=== PATIENT | male | born 1940 | race Hispanic/Latino ===

== ENCOUNTER → 2018-10-20 | Outpatient (CLI) | payer OTHER | END | disposition home or self-care (01) | LOC: SHCH 12:34 | PROVIDERS: ATTEND Internal Medicine Cardiovascular Disease | DX: I51.7 Cardiomegaly (principal); I35.1 Nonrheumatic aortic (valve) insufficiency; Z95.2 Presence of prosthetic heart valve | CPT/HCPCS: 93306 ==

== ENCOUNTER → 2018-10-29 | Outpatient (CLI) | payer OTHER | END | disposition home or self-care (01) | LOC: SHCH 10:00 | PROVIDERS: ATTEND Internal Medicine Cardiovascular Disease | DX: I87.2 Venous insufficiency (chronic) (peripheral) (principal); R09.89 Other specified symptoms and signs involving the circulatory and respiratory systems | CPT/HCPCS: 93880; 93970 ==

== ENCOUNTER → 2018-11-12 | Outpatient (CLI) | payer OTHER ==
[~2018-11-12] MED LIST: ASPI-555 PO; BENZ-51 PO; FENO54TA6 PO; FINA5TAB41 PO; LOSA100T20 PO; METF500S7 PO; METO25TA6 PO; PRAV40TA3 PO; TAMS0.4C32 PO; WARF4TAB72 PO
== END | disposition home or self-care (01) ==
LOC: OIH 15:47
PROVIDERS: ATTEND Family Medicine
DX: I11.0 Hypertensive heart disease with heart failure (principal); I50.9 Heart failure, unspecified
CPT/HCPCS: 71046

== ENCOUNTER 2018-11-24 20:59 | Emergency (ER) | payer OTHER ==
[2018-11-24 22:09] LABS: BASOPHILS % (AUTO) 0.9 % (0.0-5.0); EOSINOPHILS % (AUTO) 4.8 % (0.0-8.0); HEMATOCRIT 36.3 % (42-54); LYMPHOCYTES % (AUTO) 23.4 % (21.0-51.0); MEAN CORPUSCULAR HEMOGLOBIN 30.5 pg (27.0-33.0); MEAN CORPUSCULAR VOLUME 92.6 fL (79-99); MONOCYTES % (AUTO) 8.8 % (3.0-13.0); NEUTROPHILS % (AUTO) 62.1 % (40.0-77.0); PLATELET COUNT (AUTO) 147 K/uL (130-400); RED BLOOD CELL COUNT(AUTO) 3.93 MIL/uL (4.50-6.20); RED CELL DISTRIBUTION WIDTH 14.6 % (11.0-15.5); WHITE BLOOD COUNT (AUTO) 7.9 K/uL (4.8-10.8)
[2018-11-24 22:21] LABS: CREATININE 0.9 mg/dL (0.5-1.5); POTASSIUM 4.2 mmol/L (3.5-5.1)
[2018-11-24 22:22] LABS: INR 2.97 (0.85-1.15); PARTIAL THROMBOPLASTIN TIME 50.3 SEC (26.3-35.5); PROTHROMBIN TIME 30.5 SEC (9.6-11.6)
[2018-11-24 22:42] LABS: ALBUMIN 3.6 g/dL (3.5-5.0); BILIRUBIN,TOTAL 0.8 mg/dL (0.2-1.0); CRP QUANTITATIVE 12.5 mg/L (0.00-9.0); TOTAL PROTEIN, SERUM 6.8 g/dL (6.0-8.3)
[2018-11-24 23:07] LABS: BILIRUBIN,URINE Negative (NEGATIVE); COLOR,URINE Yellow (YELLOW); GLUCOSE, URINE (UA) Negative (NEGATIVE); KETONES,URINE Negative (NEGATIVE); LEUKOCYTE ESTERASE ,URINE Large (NEGATIVE); NITRATE,URINE Positive (NEGATIVE); OCCULT BLOOD,URINE Moderate (NEGATIVE); PROTEIN,URINE Negative (NEGATIVE)
[2018-11-24 23:08] LABS: APPEARANCE,URINE SLIGHTLY CLOUDY (CLEAR)
[2018-11-24] MEDS ORDERED: SODIUM CHLORIDE 0.9% 100 ML IV ONE (23:25)
[2018-11-24] MEDS ORDERED: SODIUM CHLORIDE 0.9% 50 ML IV ONE (23:25)
[2018-11-24] MEDS ORDERED: CEFTRIAXONE SODIUM 1 GM ONE (23:25)
[2018-11-24 23:26] LABS: ERYTHROCYTE SEDIMENTATION RATE 22 MM/HR (0-20)
[2018-11-24 23:32] LABS: BACTERIA,URINE Many /HPF (None Seen); SQUAMOUS EPITHELIAL CELL,UR 0-2 /HPF (0-2); WBC,URINE 26-50 /HPF (0-1)
== END 2018-11-25 00:20 | disposition home or self-care (01) ==
LOC: EDH 20:59
DX: T82.897A Other specified complication of cardiac prosthetic devices, implants and grafts, initial encounter (principal); N39.0 Urinary tract infection, site not specified; I10 Essential (primary) hypertension; I38 Endocarditis, valve unspecified; E11.9 Type 2 diabetes mellitus without complications; E78.5 Hyperlipidemia, unspecified; Z87.891 Personal history of nicotine dependence
CPT/HCPCS: 36415; 71045; 80053; 81001; 82550; 84484; 85025; 85610; 85651; 85730; 86140; 87077; 87088; 87186; 93005; 96374; 99284; J0696

== ENCOUNTER 2019-04-17 18:12 | Emergency (ER) | payer OTHER ==
[~2019-04-17 18:12] MED LIST changes: -BENZ-51 PO; -LOSA100T20 PO; +LOSA100T58 PO; +METF-805 PO; -METF500S7 PO; -WARF4TAB72 PO
[2019-04-17] MEDS ORDERED: LIDOCAINE HCL 1% 20 ML VIAL ONE (19:37)
[2019-04-17] MEDS ORDERED: TETANUS/DIPHTHERIA TOXOID [ADULT] 0.5 ML VIAL IM ONE (19:59)
== END 2019-04-17 20:09 | disposition home or self-care (01) ==
LOC: EDH 18:12
DX: S61.210A Laceration without foreign body of right index finger without damage to nail, initial encounter (principal); E11.9 Type 2 diabetes mellitus without complications; E78.5 Hyperlipidemia, unspecified; Z79.01 Long term (current) use of anticoagulants; Z95.0 Presence of cardiac pacemaker; Z72.0 Tobacco use; W26.8XXA Contact with other sharp object(s), not elsewhere classified, initial encounter; Y93.89 Activity, other specified; Y92.89 Other specified places as the place of occurrence of the external cause; Y99.8 Other external cause status
CPT/HCPCS: 12041; 73130; 90471; 90714

== ENCOUNTER → 2020-03-03 | Outpatient (CLI) | payer OTHER | END | disposition home or self-care (01) | LOC: RAH 09:14 | PROVIDERS: ATTEND Family Medicine | DX: N28.1 Cyst of kidney, acquired (principal) | CPT/HCPCS: 76770 ==

== ENCOUNTER → 2020-05-12 | Outpatient (CLI) | payer OTHER ==
[~2020-05-12] MED LIST changes: -ASPI-555 PO; +ASPI-556 PO
== END | disposition home or self-care (01) ==
LOC: SHCH 15:14
PROVIDERS: ATTEND Family Medicine
DX: Z95.2 Presence of prosthetic heart valve (principal)
CPT/HCPCS: 93306

== ENCOUNTER 2024-10-27 12:46 | Emergency (ER) | payer OTHER ==
[~2024-10-27] VITALS: Ht 165.1 cm; Wt 73.5 kg
[~2024-10-27 12:46] MED LIST changes: -LOSA100T58 PO; +LOSA100T59 PO; +METF-1150 PO; +METF-444 PO; -METF-805 PO; +PRAV80TA21 PO; +QUET50TA24 PO; +TAMS-1 PO; +WARF4TAB72 PO
--- NOTE | 2024-10-27 13:34 | ERN ---
ED Note History of Present Illness Stated Complaint: BLOOD IN URINE Chief Complaint: Blood in Urine: Time Seen by MD: 13:19 Dictation: PATIENT IS AN 84-YEAR-OLD MALE HERE WITH PAINLESS HEMATURIA ONSET AT 03:00 THIS MORNING. HE IS ON BLOOD THINNERS AND DAUGHTER STATES HE HAS A HISTORY OF BLADDER CANCER, SEEING DR. ALEMAN, UROLOGY OUT [facility]. Allergies: Coded Allergies: No Allergy Information Available (Verified Allergy, Unknown, 03/18/23) No Known Drug Allergies (Unverified Allergy, Unknown, 03/18/23) Home Meds Reported Medications Metformin HCl (Metformin HCl) 500 Mg Tablet, 500 MG PO DAILY, TAB 01/26/21 Losartan Potassium (Losartan Potassium) 100 Mg Tablet, 100 MG PO DAILY, TAB 01/26/21 Finasteride (Finasteride) 5 Mg Tablet, 5 MG PO DAILY, TAB 01/26/21 Metoprolol Tartrate (Metoprolol Tartrate) 25 Mg Tablet, 25 MG PO BID, TAB 01/26/21 Tamsulosin HCl (Flomax) 0.4 Mg Cap.er.24h, 0.4 MG PO AM, CAPSULE. 01/26/21 Pravastatin Sodium (Pravastatin Sodium) 80 Mg Tablet, 80 MG PO HS, TAB 01/26/21 Warfarin Sodium (Warfarin Sodium) 4 Mg Tablet, 4 MG PO DAILY, TAB 01/26/21 Quetiapine Fumarate (Quetiapine Fumarate) 50 Mg Tablet, 50 MG PO HS 01/24/21 Metformin HCl (Metformin HCl ER) 500 Mg [id number], 500 MG PO DAILY 02/25/19 Metoprolol Tartrate (Metoprolol Tartrate) 25 Mg Tablet, 25 MG PO BID, TAB 11/12/18 Aspirin (Aspir 81) 81 Mg Tablet.dr, 81 MG PO DAILY, TAB 11/12/18 Fenofibrate (Fenofibrate) 54 Mg Tablet, 54 MG PO DAILYBKFST, TAB 11/12/18 Losartan Potassium (Losartan Potassium) 100 Mg Tablet, 100 MG PO DAILYBKFST, TAB 11/12/18 Tamsulosin HCl (Tamsulosin HCl) 0.4 Mg Cap.er.24h, 0.4 MG PO DAILYBKFST, CAPSULE. 11/12/18 Finasteride (Finasteride) 5 Mg Tablet, 5 MG PO DAILY, TAB 11/12/18 Pravastatin Sodium (Pravastatin Sodium) 40 Mg Tablet, 40 MG PO DAILYDINNER, TAB 11/12/18 Past Medical History PSYCH History: no pertinent psych hx RN Note Reviewed/Agreed w/PFSH: Yes Review of System Dictation CONSTITUTIONAL: NEGATIVE EXCEPT FOR HPI HEAD/FACE: NEGATIVE EXCEPT FOR HPI EENT: NEGATIVE EXCEPT FOR HPI RESPIRATORY: NEGATIVE EXCEPT FOR HPI GASTROINTESTINAL/ABDOMINAL: NEGATIVE EXCEPT FOR HPI GENITOURINARY: NEGATIVE EXCEPT FOR HPI PAINLESS HEMATURIA MUSCULOSKELETAL: NEGATIVE EXCEPT FOR HPI INTEGUMENTARY: NEGATIVE EXCEPT FOR HPI NEUROLOGICAL/PSYCH: NEGATIVE EXCEPT FOR HPI HEMATOLOGIC/LYMPHATIC: NEGATIVE EXCEPT FOR HPI ALL SYSTEMS NEGATIVE, EXCEPT NOTED ABOVE. 13 POINT REVIEW OF SYSTEMS ASSESSED AND ALL NEGATIVE EXCEPT FOR ABOVE. Initial Vital Sign VS Vital Signs Date Time Temp Pulse Resp B/P (MAP) Pulse Ox O2 Delivery O2 Flow Rate FiO2 10/27/24 13:28 98.4 100 18 147/65 98 10/27/24 14:09 Room Air* 0 21 Physical Exam Dictation VITAL SIGNS REVIEWED GENERAL APPEARANCE: ALERT, ORIENTED X 3, NO ACUTE DISTRESS, WELL DEVELOPED, NOURISHED. HEAD AND FACE: NON-TRAUMATIC. EYES: PERRL, PINK CONJUNCTIVAS, EYELID NO TRAUMA, ANTERIOR CHAMBER WITH ARCUS SENILIS. EARS: PINNAS INTACT AND NO SIGNS OF TRAUMA OR ERYTHEMA EAR CANALS CLEAR AND NO DISCHARGE TM NO ERYTHEMA NOSE: NO DISCHARGE, NO BLEEDING. OROPHARYNX: MOUTH NORMAL, TONGUE PINK, PHARYNX CLEAR,NO ERYTHEMA, TONSILS NO EXUDATES, NO ABSCESSES NOTED, MUCOUS MEMBRANE MOIST NECK: SUPPLE, NON-TENDER, NO THYROMEGALY, NO MASSES, NO JVD, NO BRUITS BREAST:DEFERRED CHEST:NO TENDERNESS, NO CREPITUS, NO PARADOXICAL MOVEMENT, NO RETRACTIONS LUNGS:CLEAR, WELL-VENTILATED, SYMMETRIC, NO RALES, NO WHEEZING, NO RHONCHI, NO STRIDOR, GOOD BREATH SOUNDS BILATERALLY HEART: REGULAR RATE, REGULAR RHYTHM, NO MURMUR, NO GALLOPS VASCULAR: NO PERIPHERAL EDEMA, ABDOMEN: SOFT, POSITIVE BOWEL SOUNDS, NONDISTENDED, NO GUARDING, NONTENDER, NO REBOUND, NO MASSES NO HEPATOMEGALY, NO SPLENOMEGALY, NO HERNANDEZ'S SIGN, NO HERNIAS. RECTAL: DEFERRED GENITAL: DEFERRED NEUROLOGICAL: NORMAL SPEECH, MOTOR FUNCTION INTACT, SENSORY FUNCTION INTACT MUSCULOSKELETAL: NECK NONTENDER, FULL RANGE OF MOTION, BACK NONTENDER, FULL RANGE OF MOTION, EXTREMITIES: NONTENDER, FULL RANGE OF MOTION SKIN: COLOR PINK, DRY, NO TURGOR, NO RASH, NO LACERATIONS, NO ABRASIONS, NO CONTUSIONS. LYMPHATIC: DEFERRED Results (Laboratory/Radiology) Laboratory/Radiology Laboratory Tests Test 10/27/24 14:10 10/27/24 17:13 White Blood Count 8.2 K/uL (4.8-10.8) Red Blood Count 5.13 MIL/uL (4.50-6.20) Hemoglobin 16.1 g/dL (14.0-18.0) Hematocrit 47.8 % (42-54) Mean Corpuscular Volume 93.2 fL (79-99) Mean Corpuscular Hemoglobin 31.4 pg (27.0-33.0) Mean Corpuscular Hemoglobin Concent 33.7 g/dL (32.0-36.0) Red Cell Distribution Width 13.6 % (11.0-15.5) Platelet Count 145 K/uL (130-400) Mean Platelet Volume 10.5 fL (7.5-10.5) Immature Granulocyte % (Auto) 0.5 % (0-1) Neutrophils (%) (Auto) 61.8 % (40.0-77.0) Lymphocytes (%) (Auto) 23.3 % (21.0-51.0) Monocytes (%) (Auto) 9.7 % (3.0-13.0) Eosinophils (%) (Auto) 3.9 % (0.0-8.0) Basophils (%) (Auto) 0.8 % (0.0-5.0) Neutrophils # (Auto) 5.1 K/uL (1.8-7.7) Lymphocytes # (Auto) 1.9 K/uL (1.0-4.8) Monocytes # (Auto) 0.8 K/uL (0.1-1.0) Eosinophils # (Auto) 0.32 K/uL (0.00-0.70) Basophils # (Auto) 0.07 K/uL (0.00-0.20) Absolute Immature Granulocyte (auto 0.04 K/uL (0-1) Nucleated Red Blood Cells 0.0 % (0.0-0.19) Prothrombin Time 32.3 SEC (9.6-11.6) H Prothromb Time International Ratio 3.26 (0.85-1.15) H Activated Partial Thromboplast Time 39.1 SEC (26.3-35.5) H Sodium Level 137 mmol/L (136-145) Potassium Level 4.7 mmol/L (3.5-5.1) Chloride Level 101 mmol/L (101-111) Carbon Dioxide Level 29 mmol/L (21-32) Blood Urea Nitrogen 47 mg/dL (7-18) H Creatinine 1.1 mg/dL (0.5-1.3) Glomerular Filtration Rate Calc 67 mL/min (>90) Random Glucose 89 mg/dL (70-105) Total Calcium 9.2 mg/dL (8.5-10.1) Urine Color RED (YELLOW) Urine Appearance CLOUDY (CLEAR) H Urine pH 5.0 (5.0-8.0) Urine Specific [place] 1.020 (1.001-1.031) Urine Protein >=300 mg/dL (NEGATIVE) H Urine Glucose (UA) 100 mg/dL (NEGATIVE) H Urine Ketones 15 mg/dL (NEGATIVE) H Urine Occult Blood LARGE (NEGATIVE) H Urine Nitrate POSITIVE (NEGATIVE) H Urine Bilirubin MODERATE mg/dL (NEGATIVE) H Urine Urobilinogen 2.0 mg/dL (0.2-1.0) H Urine Leukocyte Esterase MODERATE [place]/uL Labs Reviewed?: Yes ED Course ED Course Orders Procedure Category Date Status Time Pt And Ptt LAB 10/27/24 Complete 13:33 Cbc With Differential LAB 10/27/24 Complete 13:33 Urinalysis Profile LAB 10/27/24 In Process 13:33 Basic Metabolic Panel LAB 10/27/24 Complete 13:33 Culture Urine SALOME 10/27/24 Logged 17:35 Amox/Clav 875/125mg PHA 10/27/24 Logged Tab (Augmentin 875-1 18:00 Current Medications Medications (Trade) Dose Ordered Sig/Chan Route PRN Reason Start Time Stop Time Status Last Admin Dose Admin Amoxicillin/ Clavulanate Potassium (Augmentin 875-125 Tablet) 1 each ONCE ONCE PO 10/27/24 18:00 10/27/24 18:01 UNV Vital Signs Date Time Temp Pulse Resp B/P (MAP) Pulse Ox O2 Delivery O2 Flow Rate FiO2 10/27/24 16:49 98.4 66 20 142/70 100 Room Air* 0 21 10/27/24 15:15 98.8 64 20 140/66 100 Room Air* 0 21 10/27/24 14:09 98.8 66 20 149/62 100 Room Air* 0 21 10/27/24 13:28 98.4 100 18 147/65 98 745 POSTVOID RESIDUAL 29 CC. PATIENT WILL BE DISCHARGED HOME WITH A ACUTE CYSTITIS WITH HEMATURIA WE WILL BE STARTED ON AUGMENTIN 875, TOLD TO SEE HIS [facility] DOCTOR TOMORROW FOR REFERRAL TO UROLOGY. Medical Decision Making MDM MEDICAL DISCHARGE MAKING BASED ON BASIC LABS AND URINALYSIS. PATIENT HEMODYNAMICALLY STABLE, HEMOGLOBIN AND HEMATOCRIT STABLE PATIENT HAS A ACUTE CYSTITIS WITH HEMATURIA WE WILL BE DISCHARGED HOME WITH [id number] AND PYRIDIUM , TOLD SEE HIS PRIMARY CARE DOCTOR IN 1-2 DAYS FOR REFERRAL TO UROLOGY. DX & DISP Disposition: Discharge Departure Impression: Primary Impression: Acute cystitis with hematuria Additional Impression: Bladder cancer Condition: Stable Scripts Phenazopyridine HCl (Pyridium) 200 Mg Tablet 200 MG PO TID for painful urination, #10 TAB 0 Refills Prov: JELANI ZEPEDA NP 10/27/24 Amoxicillin/Potassium Clav (Amox Tr-K Clv 875-125 mg Tab) 875 Mg-125 Mg Tablet 1 EACH PO BID for 7 Days, #14 TAB 0 Refills Prov: JELANI ZEPEDA NP 10/27/24 Additional Instructions: FOLLOW-UP WITH PRIMARY CARE PROVIDER IN 1 TO 2 DAYS. TAKE MEDICATIONS DIRECTED HERE IN THE EMERGENCY ROOM. OKAY TO CONTINUE HOME MEDICATIONS UNLESS OTHERWISE DISCUSSED DURING YOUR VISIT IN THE EMERGENCY ROOM TODAY. RETURN TO YOUR NEAREST EMERGENCY ROOM IF SYMPTOMS WORSEN OR IF THERE IS NO IMPROVEMENT. CALL 911 IF YOU NEED IMMEDIATE ASSISTANCE. TAKE TYLENOL OR MOTRIN [id number] NEEDED AND IF NO CONTRAINDICATIONS ARE PRESENT. INCREASE ORAL HYDRATION. A WOUND CULTURE OR URINE CULTURE WAS ORDERED HERE IN THE EMERGENCY ROOM DEPARTMENT PLEASE FOLLOW-UP WITH PRIMARY CARE PROVIDER AND ADVISE THEM TO GET REPEAT PORTS FROM OUR FACILITY. IF YOU HAD ANY JODI WRAP/SPLINTS THAT WERE APPLIED HERE, PLEASE DO NOT REMOVE THEM UNTIL YOU SEE YOUR PRIMARY CARE OR SPECIALTY. TAKE ANTIBIOTICS DIRECTED UNTIL GONE. , INCREASE YOUR WATER INTAKE. FOLLOW UP WITH YOUR UROLOGIST AT [facility] IN THE NEXT 1-2 DAYS. Referrals: LUBNA HERNANDEZ MD (PCP) Time of Disposition: 17:47 I have reviewed the case, and I agree with, Diagnosis and Plan JELANI ZEPEDA NP Oct 27, 2024 13:34
[2024-10-27 14:23] LABS: BASOPHILS # (AUTO) 0.07 K/uL (0.00-0.20); BASOPHILS % (AUTO) 0.8 % (0.0-5.0); EOSINOPHILS # (AUTO) 0.32 K/uL (0.00-0.70); EOSINOPHILS % (AUTO) 3.9 % (0.0-8.0); HEMATOCRIT 47.8 % (42-54); IMMATURE GRANULOCYTE ABSOLUTE 0.04 K/uL (0-1); LYMPHOCYTES # (AUTO) 1.9 K/uL (1.0-4.8); LYMPHOCYTES % (AUTO) 23.3 % (21.0-51.0); MEAN CORPUSCULAR HEMOGLOBIN 31.4 pg (27.0-33.0); MEAN CORPUSCULAR HGB CONC 33.7 g/dL (32.0-36.0); MEAN CORPUSCULAR VOLUME 93.2 fL (79-99); MONOCYTES # (AUTO) 0.8 K/uL (0.1-1.0); MONOCYTES % (AUTO) 9.7 % (3.0-13.0); NEUTROPHILS # (AUTO) 5.1 K/uL (1.8-7.7); NEUTROPHILS % (AUTO) 61.8 % (40.0-77.0); PLATELET COUNT (AUTO) 145 K/uL (130-400); RED BLOOD CELL COUNT(AUTO) 5.13 MIL/uL (4.50-6.20); RED CELL DISTRIBUTION WIDTH 13.6 % (11.0-15.5); WHITE BLOOD COUNT (AUTO) 8.2 K/uL (4.8-10.8)
[2024-10-27 14:34] LABS: CREATININE 1.1 mg/dL (0.5-1.3); POTASSIUM 4.7 mmol/L (3.5-5.1)
[2024-10-27 14:37] LABS: INR 3.26 (0.85-1.15); PROTHROMBIN TIME 32.3 SEC (9.6-11.6)
[2024-10-27 14:38] LABS: PARTIAL THROMBOPLASTIN TIME 39.1 SEC (26.3-35.5)
[2024-10-27 17:33] LABS: BILIRUBIN,URINE MODERATE mg/dL (NEGATIVE); GLUCOSE, URINE (UA) 100 mg/dL (NEGATIVE); KETONES,URINE 15 mg/dL (NEGATIVE); LEUKOCYTE ESTERASE ,URINE MODERATE Leu/uL (NEGATIVE); NITRATE,URINE POSITIVE (NEGATIVE); OCCULT BLOOD,URINE LARGE (NEGATIVE); PROTEIN,URINE >=300 mg/dL (NEGATIVE)
[2024-10-27 17:34] LABS: APPEARANCE,URINE CLOUDY (CLEAR)
[2024-10-27 17:35] LABS: ADD UA MICROSCOPIC YES; COLOR,URINE RED (YELLOW)
[2024-10-27 17:49] LABS: RBC,URINE TNTC /HPF (0-1)
[2024-10-27] MEDS ORDERED: AMOX1TAB16 PO (17:49)
[2024-10-27] MEDS ORDERED: PHEN-776 PO (17:49)
[2024-10-27 17:51] LABS: BACTERIA,URINE Moderate /HPF (None Seen)
[2024-10-27] MEDS ORDERED: AMOX/CLAV 875/125MG TAB PO ONE (18:00)
[2024-10-27] MEDS: AMOX/CLAV 875/125MG TAB PO ONE (18:16)
[2024-10-27 18:17] VITALS: BP 132/75; PULSE 68; RESP 20; TEMP 98.4; O2SAT 100
== END 2024-10-27 18:19 | disposition home or self-care (01) ==
LOC: EDH 12:46
DX: N30.01 Acute cystitis with hematuria (principal); C67.9 Malignant neoplasm of bladder, unspecified; Z79.01 Long term (current) use of anticoagulants; Z79.82 Long term (current) use of aspirin; Z79.84 Long term (current) use of oral hypoglycemic drugs; Z79.899 Other long term (current) drug therapy
CPT/HCPCS: 36415; 80048; 81001; 85025; 85610; 85730; 87086; 99283

== ENCOUNTER 2025-03-17 11:42 | Emergency (ER) | payer OTHER ==
[~2025-03-17] VITALS: Ht 172.7 cm; Wt 81.6 kg
[~2025-03-17 11:42] MED LIST changes: +AMOX1TAB16 PO; +PHEN-776 PO; -TAMS-1 PO; +TAMS-55 PO
--- NOTE | 2025-03-17 12:06 | ERN ---
ED Note History of Present Illness Stated Complaint: SEVERE BACK PAIN Chief Complaint: Back Pain or Injury Time Seen by MD: 11:43 Time Seen by Midlevel: 11:45 Dictation: 84-year-old male coming in with complaints of sacral pain. Daughter and patient states he had a ground level fall on Friday fell on his buttocks, was taken to [facility] where they told him he had broken his tailbone but did not receive any pain medication. They are here now for pain control. No new trauma or injury. Denies any incontinence or saddle paresthesias. Patient came in ambulating without assistance. Allergies: Coded Allergies: No Allergy Information Available (Verified Allergy, Unknown, 03/18/23) No Known Drug Allergies (Unverified Allergy, Unknown, 03/18/23) Home Meds Active Scripts Phenazopyridine HCl (Pyridium) 200 Mg Tablet, 200 MG PO TID for painful urination, #10 TAB 0 Refills Prov:JELANI ZEPEDA NP 10/27/24 Amoxicillin/Potassium Clav (Amox Tr-K Clv 875-125 mg Tab) 875 Mg-125 Mg Tablet, 1 EACH PO BID for 7 Days, #14 TAB 0 Refills Prov:JELANI ZEPEDA NP 10/27/24 Reported Medications Metformin HCl (Metformin HCl) 500 Mg Tablet, 500 MG PO DAILY, TAB 01/26/21 Losartan Potassium (Losartan Potassium) 100 Mg Tablet, 100 MG PO DAILY, TAB 01/26/21 Finasteride (Finasteride) 5 Mg Tablet, 5 MG PO DAILY, TAB 01/26/21 Metoprolol Tartrate (Metoprolol Tartrate) 25 Mg Tablet, 25 MG PO BID, TAB 01/26/21 Tamsulosin HCl (Flomax) 0.4 Mg Cap.er.24h, 0.4 MG PO AM, CAPSULE.DR 01/26/21 Pravastatin Sodium (Pravastatin Sodium) 80 Mg Tablet, 80 MG PO HS, TAB 01/26/21 Warfarin Sodium (Warfarin Sodium) 4 Mg Tablet, 4 MG PO DAILY, TAB 01/26/21 Quetiapine Fumarate (Quetiapine Fumarate) 50 Mg Tablet, 50 MG PO HS 01/24/21 Metformin HCl (Metformin HCl ER) 500 Mg [id number], 500 MG PO DAILY 02/25/19 Metoprolol Tartrate (Metoprolol Tartrate) 25 Mg Tablet, 25 MG PO BID, TAB 11/12/18 Aspirin (Aspir 81) 81 Mg Tablet.dr, 81 MG PO DAILY, TAB 11/12/18 Fenofibrate (Fenofibrate) 54 Mg Tablet, 54 MG PO DAILYBKFST, TAB 11/12/18 Losartan Potassium (Losartan Potassium) 100 Mg Tablet, 100 MG PO DAILYBKFST, TAB 11/12/18 Tamsulosin HCl (Tamsulosin HCl) 0.4 Mg Cap.er.24h, 0.4 MG PO DAILYBKFST, CAP JONES.DR 11/12/18 Finasteride (Finasteride) 5 Mg Tablet, 5 MG PO DAILY, TAB 11/12/18 Pravastatin Sodium (Pravastatin Sodium) 40 Mg Tablet, 40 MG PO DAILYDINNER, TAB 11/12/18 Past Medical History Past Medical History: A-Fib, Cancer, Dementia, Hypertension Surgical History: None Review of System Dictation Constitutional: Negative for fever,chills, and weight loss Eyes: Negative for injury, pain,redness, and discharge ENT: Negative for injury,pain or swelling Cardiovascular: Negative for chest pain, palpitations, and edema Respiratory: Negative for shortness of breath, cough, and wheezing, Abdomen/GI: Negative for abdominal pain, nausea, vomiting, diarrhea, and constipation Back: Negative for injury and pain : Negative for injury, bleeding and discharge MS/Extremity: Negative for injury and deformity complaining of lower back pain along the tailbone area Skin: Negative for rash, and discoloration Neuro: Negative for headache, weakness, numbness, tingling, and seizure Psych: Negative for suicide ideation, homicidal ideation, and hallucinations Review of Systems: was completed Initial Vital Sign VS Vital Signs Date Time Temp Pulse Resp B/P (MAP) Pulse Ox O2 Delivery O2 Flow Rate FiO2 03/17/25 11:54 98.2 82 16 123/71 97 Room Air* 0 21 Physical Exam Dictation General: awake, alert, NAD Head/Face: Normocephalic, atraumatic Eyes: PERRL, EOMI, vision at baseline ENT: oral cavity clear, TMs clear, no signs of infection Neck: Trachea midline, supple, no nuchal rigidity Cardiovascular: RRR, normal S1/S2, No MRGs, no JVD Respiratory: CTAB, no respiratory distress, No rales or wheezes Abdomen: Soft, non-tender, non-distended, normal bowel sounds, no guarding or rebound. Skin: Warm, dry, normal turgor, no rash MS/Extremity: Pulses equal, no cyanosis, neurovascular intact, FROM Neuro: COAx4, GCS 15, strength 5/5, CN 2-12 intact, normal cerebellar exam, normal gait, Psych: Normal behavior, mood, and affect normal ED Course ED Course Orders Procedure Category Date Status Time Hydrocodone/Apap PHA 03/17/25 Complete 5/325 ([place] 5/325mg) 12:30 Sacrum/Coccyx 2+Vws RAD 03/17/25 Taken 12:03 Pelvis 1-2vws RAD 03/17/25 Taken 12:03 Current Medications Medications (Trade) Dose Ordered Sig/Chan Route PRN Reason Start Time Stop Time Status Last Admin Dose Admin Acetaminophen/ Hydrocodone Bitart (NORco 5/325MG) 1 tab ONCE ONCE PO 03/17/25 12:30 03/17/25 12:31 DC 03/17/25 12:09 Vital Signs Date Time Temp Pulse Resp B/P (MAP) Pulse Ox O2 Delivery O2 Flow Rate FiO2 03/17/25 11:54 98.2 82 16 123/71 97 Room Air 03/17/25 11:54 98.2 82 16 123/71 97 Room Air* 0 21 Medical Decision Making MDM MDM: 84-year-old male coming in with complaints of sacral pain. Daughter and patient states he had a ground level fall on Friday fell on his buttocks, was taken to [facility] where they told him he had broken his tailbone but did not receive any pain medication. They are here now for pain control. No new trauma or injury. Denies any incontinence or saddle paresthesias. Patient came in ambulating without assistance. On physical exam there are no obvious injuries. No external rotation, no pain on log roll. X-rays show no fractures, interpreted by myself and ER MD. discussed findings with daughter, educated how to follow up with PCP in two only take Tylenol [id number]. Daughter verbalized understanding, answered all questions. Differential diagnosis: Coccyx fracture, coccyx contusion, sacral contusion, hip fracture Rationale: Tests considered and ordered secondary to shared decision making include: Previous outside records reviewed: Old ER visits. Risk of complication and/or morbidity or mortality of patient management: None Medications-Per medication reconciliation Need for hospitalization: Patient does not meet criteria for hospitalization. Need for emergency major/minor surgery: No There are no social concerns with this patient. Prescription drug management Prescriptions will include symptomatic care Patient's prior external medical records from other ER visits were reviewed by me as indicated. Prior testing and results from previous visits were reviewed. Prior tests were taken into account with medical decision making and resource utilization, independent historian/historians were used to obtain complete medical history. I independently interpreted the test that were performed, results were reviewed by me and considered findings on radiology if ordered. Medical management and examination interpretation discussions were had by me with other qualified healthcare professionals as indicated for the patient's care. DX & DISP Disposition: Discharge Departure Impression: Primary Impression: Sacral contusion Condition: Stable Additional Instructions: Take Tylenol [id number] for pain control. Follow up with your PCP in 1-2 days. Return to the hospital if you have any worsening symptoms. Referrals: LUBNA HERNANDEZ MD (PCP) Time of Disposition: 15:05 I have reviewed the case, and I agree with, Diagnosis and Plan SEAMUS TREVIÑO NP Mar 17, 2025 12:06
[2025-03-17] MEDS: HYDROcodone/APAP 5/325 1 TAB TABLET PO ONE (12:09)
[2025-03-17 15:05] VITALS: BP 132/64; PULSE 80; RESP 16; TEMP 98.2; O2SAT 99
--- NOTE | 2025-03-17 16:01 | HMCIMG ---
PELVIS 1-2VWS HISTORY: Status post fall COMPARISON: None TECHNIQUE: Frontal projection of the pelvis was obtained. FINDINGS: There is no acute displaced fracture or dislocation. Degenerative changes are seen. IMPRESSION: 1. Findings as described above.
--- NOTE | 2025-03-17 16:14 | HMCIMG ---
SACRUM/COCCYX 2+VWS HISTORY: Status post fall COMPARISON: None TECHNIQUE: 3 images of sacrum and coccyx were obtained. FINDINGS: Disc space narrowing is seen at L4-5 and L5-S1 levels. There is no acute displaced fracture or dislocation. Degenerative changes are seen. IMPRESSION: 1. Findings as described above.
== END 2025-03-17 15:08 | disposition home or self-care (01) ==
LOC: EDH 11:42
DX: S30.0XXA Contusion of lower back and pelvis, initial encounter (principal); F03.90 Unspecified dementia, unspecified severity, without behavioral disturbance, psychotic disturbance, mood disturbance, and anxiety; I10 Essential (primary) hypertension; Z79.01 Long term (current) use of anticoagulants; Z79.82 Long term (current) use of aspirin; Z79.84 Long term (current) use of oral hypoglycemic drugs; Z79.899 Other long term (current) drug therapy; W18.39XA Other fall on same level, initial encounter; Y93.89 Activity, other specified; Y92.89 Other specified places as the place of occurrence of the external cause; Y99.8 Other external cause status
CPT/HCPCS: 72170; 72220; 99283

== ENCOUNTER 2025-03-18 19:26 | Emergency (ER) | payer OTHER ==
[~2025-03-18] VITALS: Ht 177.8 cm; Wt 79.4 kg
[2025-03-18 19:28] VITALS: BP 144/59; PULSE 76; RESP 20; TEMP 98
--- NOTE | 2025-03-18 20:32 | HMCIMG ---
CT PELVIS W/O CONTRAST HISTORY: No additional history given. COMPARISON: None TECHNIQUE: Multiple sequential axial images of the pelvis were obtained from the iliac crests through symphysis pubis. Patient was not given contrast through intravenous route. Oral contrast was not given. FINDINGS/IMPRESSION: No evidence for any acute intrapelvic abnormality. No evidence for fracture, joint effusion, or dislocation.
--- NOTE | 2025-03-18 20:35 | HMCIMG ---
CT LUMBAR SPINE WITHOUT CONTRAST INDICATION: Back pain TECHNIQUE: Noncontrast helical CT of the lumbar spine obtained at 2 mm slice thickness with reconstructions in the coronal and sagittal planes. CT was performed with one or more of the following dose reduction techniques: Automated exposure control, adjustment of the mA and/or kV according to patient size, or use of iterative reconstruction technique. COMPARISON: None FINDINGS: Normal lordosis is maintained. Shallow lumbar levoscoliosis. Acute mild superior L1 vertebral body compression fracture deformity (20% height loss) without subluxation or retropulsion. Remainder of the lumbar vertebral bodies are normal in height, without evidence for fracture or compression deformity. No evidence for subluxation. Multilevel moderate lumbar spondylosis. The sacroiliac joints appear normal. The paravertebral soft tissues appear normal. 1.2 cm proteinaceous or hemorrhagic cyst along the medial margin of the left kidney. Several diverticula along the distal colon. IMPRESSION: Acute mild superior L1 vertebral body compression fracture deformity without subluxation or retropulsion.
--- NOTE | 2025-03-18 20:45 | NUR ---
PT ELOPED FROM FAST TRACK.
--- NOTE | 2025-03-18 21:07 | ERN ---
General Chief Complaint: Low Back Pain/Injury Stated Complaint: BACK PAIN Time Seen by MD: 19:36 Time Seen by Midlevel: 19:36 Source: patient History of Present Illness Allergies: Coded Allergies: No Allergy Information Available (Verified Allergy, Unknown, 03/18/23) No Known Drug Allergies (Unverified Allergy, Unknown, 03/18/23) Home Meds Active Scripts Phenazopyridine HCl (Pyridium) 200 Mg Tablet, 200 MG PO TID for painful urination, #10 TAB 0 Refills Prov:JELANI ZEPEDA NP 10/27/24 Amoxicillin/Potassium Clav (Amox Tr-K Clv 875-125 mg Tab) 875 Mg-125 Mg Tablet, 1 EACH PO BID for 7 Days, #14 TAB 0 Refills Prov:JELANI ZEPEDA NP 10/27/24 Reported Medications Metformin HCl (Metformin HCl) 500 Mg Tablet, 500 MG PO DAILY, TAB 01/26/21 Losartan Potassium (Losartan Potassium) 100 Mg Tablet, 100 MG PO DAILY, TAB 01/26/21 Finasteride (Finasteride) 5 Mg Tablet, 5 MG PO DAILY, TAB 01/26/21 Metoprolol Tartrate (Metoprolol Tartrate) 25 Mg Tablet, 25 MG PO BID, TAB 01/26/21 Tamsulosin HCl (Flomax) 0.4 Mg Cap.er.24h, 0.4 MG PO AM, CAPSULE.DR 01/26/21 Pravastatin Sodium (Pravastatin Sodium) 80 Mg Tablet, 80 MG PO HS, TAB 01/26/21 Warfarin Sodium (Warfarin Sodium) 4 Mg Tablet, 4 MG PO DAILY, TAB 01/26/21 Quetiapine Fumarate (Quetiapine Fumarate) 50 Mg Tablet, 50 MG PO HS 01/24/21 Metformin HCl (Metformin HCl ER) 500 Mg [id number], 500 MG PO DAILY 02/25/19 Metoprolol Tartrate (Metoprolol Tartrate) 25 Mg Tablet, 25 MG PO BID, TAB 11/12/18 Aspirin (Aspir 81) 81 Mg Tablet.dr, 81 MG PO DAILY, TAB 11/12/18 Fenofibrate (Fenofibrate) 54 Mg Tablet, 54 MG PO DAILYBKFST, TAB 11/12/18 Losartan Potassium (Losartan Potassium) 100 Mg Tablet, 100 MG PO DAILYBKFST, TAB 11/12/18 Tamsulosin HCl (Tamsulosin HCl) 0.4 Mg Cap.er.24h, 0.4 MG PO DAILYBKFST, CAPSULE. 11/12/18 Finasteride (Finasteride) 5 Mg Tablet, 5 MG PO DAILY, TAB 11/12/18 Pravastatin Sodium (Pravastatin Sodium) 40 Mg Tablet, 40 MG PO DAILYDINNER, TAB 11/12/18 Past Medical History Past Medical History: A-Fib, Cancer, Dementia, Hypertension Past Surgical History: None ED Course Orders Procedure Category Date Status Time Ct Pelvis W/O Contrast CT 03/18/25 Resulted 19:43 Ct Lumbar Spine W/O CT 03/18/25 Resulted Contrast 19:43 Vital Signs Date Time Temp Pulse Resp B/P (MAP) Pulse Ox O2 Delivery O2 Flow Rate FiO2 03/18/25 19:28 98.1 76 20 144/59 100 Room Air DX & DISP Disposition: Discharge Departure Impression: Primary Impression: Eloped from emergency department Additional Impression: Closed compression fracture of body of L1 vertebra Condition: Stable Referrals: LUBNA HERNANDEZ MD (PCP) I have reviewed the case, and I agree with, Diagnosis and Plan CHANDAN LEES Mar 18, 2025 21:07
== END 2025-03-18 21:33 | disposition left against medical advice (07) ==
LOC: EDH 19:26
DX: S32.010A Wedge compression fracture of first lumbar vertebra, initial encounter for closed fracture (principal); F03.90 Unspecified dementia, unspecified severity, without behavioral disturbance, psychotic disturbance, mood disturbance, and anxiety; I10 Essential (primary) hypertension; Z79.01 Long term (current) use of anticoagulants; Z79.82 Long term (current) use of aspirin; Z79.84 Long term (current) use of oral hypoglycemic drugs; Z79.899 Other long term (current) drug therapy; W18.39XA Other fall on same level, initial encounter; Y93.89 Activity, other specified; Y92.89 Other specified places as the place of occurrence of the external cause; Y99.8 Other external cause status
CPT/HCPCS: 72131; 72192; 99284

== ENCOUNTER 2025-04-01 09:55 | Emergency (ER) | payer OTHER ==
[~2025-04-01] VITALS: Ht 172.7 cm; Wt 81.6 kg
--- NOTE | 2025-04-01 10:28 | ERN ---
General Chief Complaint: Back Pain or Injury Stated Complaint: BACK PAIN Time Seen by MD: 09:58 Source: patient History of Present Illness Initial Comments PATIENT IS A AN 84-YEAR-OLD MALE WITH COMPLAINT OF LOWER BACK PAIN. PER PATIENT THIS HAS BEEN ONGOING FOR TWO WEEKS. HE STATES HE FELL DOWN LANDING IN HIS GLUTEAL REGION IN HIS COMPLAINING OF LOWER BACK PAIN. HE STATES THAT HE SMOKES DAILY WELL. NO FEVER OR CHILLS. Allergies: Coded Allergies: No Allergy Information Available (Verified Allergy, Unknown, 03/18/23) No Known Drug Allergies (Unverified Allergy, Unknown, 03/18/23) Home Meds Active Scripts Phenazopyridine HCl (Pyridium) 200 Mg Tablet, 200 MG PO TID for painful urination, #10 TAB 0 Refills Prov:JELANI ZEPEDA NP 10/27/24 Amoxicillin/Potassium Clav (Amox Tr-K Clv 875-125 mg Tab) 875 Mg-125 Mg Tablet, 1 EACH PO BID for 7 Days, #14 TAB 0 Refills Prov:JELANI ZEPEDA NP 10/27/24 Reported Medications Metformin HCl (Metformin HCl) 500 Mg Tablet, 500 MG PO DAILY, TAB 01/26/21 Losartan Potassium (Losartan Potassium) 100 Mg Tablet, 100 MG PO DAILY, TAB 01/26/21 Finasteride (Finasteride) 5 Mg Tablet, 5 MG PO DAILY, TAB 01/26/21 Metoprolol Tartrate (Metoprolol Tartrate) 25 Mg Tablet, 25 MG PO BID, TAB 01/26/21 Tamsulosin HCl (Flomax) 0.4 Mg Cap.er.24h, 0.4 MG PO AM, CAPSULE.DR 01/26/21 Pravastatin Sodium (Pravastatin Sodium) 80 Mg Tablet, 80 MG PO HS, TAB 01/26/21 Warfarin Sodium (Warfarin Sodium) 4 Mg Tablet, 4 MG PO DAILY, TAB 01/26/21 Quetiapine Fumarate (Quetiapine Fumarate) 50 Mg Tablet, 50 MG PO HS 01/24/21 Metformin HCl (Metformin HCl ER) 500 Mg [id number], 500 MG PO DAILY 02/25/19 Metoprolol Tartrate (Metoprolol Tartrate) 25 Mg Tablet, 25 MG PO BID, TAB 11/12/18 Aspirin (Aspir 81) 81 Mg Tablet.dr, 81 MG PO DAILY, TAB 11/12/18 Fenofibrate (Fenofibrate) 54 Mg Tablet, 54 MG PO DAILYBKFST, TAB 11/12/18 Losartan Potassium (Losartan Potassium) 100 Mg Tablet, 100 MG PO DAILYBKFST, TAB 11/12/18 Tamsulosin HCl (Tamsulosin HCl) 0.4 Mg Cap.er.24h, 0.4 MG PO DAILYBKFST, CAPSULE.DR 11/12/18 Finasteride (Finasteride) 5 Mg Tablet, 5 MG PO DAILY, TAB 11/12/18 Pravastatin Sodium (Pravastatin Sodium) 40 Mg Tablet, 40 MG PO DAILYDINNER, TAB 11/12/18 Past Medical History Past Medical History: A-Fib, Cancer, Dementia, Hypertension Past Surgical History: None ROS Dictation CONSTITUTIONAL: NO CHILLS, NO FEVER, NO WEAKNESS, NO DIAPHORESIS, NO MALAISE. HEAD/FACE: NO SIGNS OF TRAUMA. EENT: NO EYE PAIN, NO BLURRED VISION, NO TEARING, NO DOUBLE VISION, NO EAR PAIN, NO EAR DISCHARGE, NO NOSE PAIN, NO NASAL CONGESTION, NO THROAT PAIN, NO THROAT SWELLING, NO MOUTH PAIN. RESPIRATORY: NO COUGH, NO ORTHOPNEA, NO SOB, NO STRIDOR, NO WHEEZING. CARDIOVASCULAR: NO CHEST PAIN, NO EDEMA, NO PALPITATIONS, NO SYNCOPE. GASTROINTESTINAL/ABDOMINAL: NO ABDOMINAL PAIN, NO CONSTIPATION, NO DIARRHEA, NO NAUSEA, NO VOMITING. GENITOURINARY: NO ABNORMAL DISCHARGE, NO DYSURIA, NO FREQUENT URINATION, NO HEMATURIA. NO COMPLAINTS OF PAIN IN THE GENITALS. MUSCULOSKELETAL: BACK PAIN, NO GOUT, NO JOINT PAIN, NO JOINT SWELLING, NO MUSCLE PAIN, NO MUSCLE STIFFNESS, NO NECK PAIN. INTEGUMENTARY: NO CHANGE IN COLOR, NO CHANGE IN HAIR/NAILS, NO DRYNESS, NO LESION, NO LUMPS, NO RASH. NEUROLOGICAL/PSYCH: NO ANXIETY, NOT DEPRESSED, NO EMOTIONAL PROBLEM, NO HEADACHE, NO NUMBNESS, NO PRE-EXISTING DEFICIT, NO HISTORY OF SEIZURES, NO TREMORS, NO WEAKNESS. HEMATOLOGIC/LYMPHATIC: NOT ANEMIC, NO HISTORY OF BLOOD CLOTS, NO APPARENT BL EEDING, NO BRUISING, GLANDS NOT SWOLLEN. ALL SYSTEMS NEGATIVE, EXCEPT NOTED. Physical Exam Physical Exam Dictation VITAL SIGNS: REVIEWED. GENERAL APPEARANCE: ALERT, ORIENTED X3, NO ACUTE DISTRESS, OBESE. HEAD AND FACE: NON-TRAUMATIC. EYES: PERRL, PINK CONJUNCTIVAS, EYELID NO TRAUMA, ANTERIOR CHAMBER CLEAR. EARS: PINNAS INTACT AND NO SIGNS OF TRAUMA OR ERYTHEMA. EAR CANALS CLEAR AND NO DISCHARGE. TMS NO ERYTHEMA. NOSE: NO DISCHARGE, NO BLEEDING. OROPHARYNX: MOUTH NORMAL, TEETH NO CARIES, TONGUE PINK. PHARYNX CLEAR, NO ERYTHEMA. TONSILS NO EXUDATES, NO ABSCESSES NOTED. MUCOUS MEMBRANE MOIST. NECK: SUPPLE, NON-TENDER, NO THYROMEGALY, NO MASSES, NO JVD, NO BRUITS. BREAST: DEFERRED. CHEST: NO TENDERNESS, NO CREPITUS, NO PARADOXICAL MOVEMENT, NO RETRACTIONS. LUNGS: CLEAR, WELL-VENTILATED, SYMMETRIC, NO RALES, NO WHEEZING, NO RHONCHI, NO STRIDOR, GOOD BREATH SOUNDS BILATERALLY. HEART: REGULAR RATE, REGULAR RHYTHM, NO MURMUR, NO GALLOPS. VASCULAR: NO PERIPHERAL EDEMA. ABDOMEN: SOFT, POSITIVE BOWEL SOUNDS, NONDISTENDED, NO GUARDING, NONTENDER, NO REBOUND, NO MASSES NO HEPATOMEGALY, NO SPLENOMEGALY, NO HERNANDEZ'S SIGN, NO HERNIAS. RECTAL: DEFERRED. GENITAL: DEFERRED. NEUROLOGICAL: NORMAL SPEECH, GROSS MOTOR FUNCTION INTACT, GROSS SENSORY FUNCTION INTACT. MUSCULOSKELETAL: NECK NONTENDER, FULL RANGE OF MOTION, GUARD IMMIGRATION, FULL RANGE OF MOTION. EXTREMITIES: NONTENDER, FULL RANGE OF MOTION. SKIN: COLOR PINK, DRY, NO TURGOR, NO RASH, NO LACERATIONS, NO ABRASIONS, NO CONTUSIONS. LYMPHATICS: DEFERRED. Results Laboratory and Microbiology Lab and Micro Result Laboratory Tests Test 04/01/25 10:47 04/01/25 11:09 White Blood Count 6.6 K/uL (4.8-10.8) Red Blood Count 5.30 MIL/uL (4.50-6.20) Hemoglobin 16.3 g/dL (14.0-18.0) Hematocrit 48.6 % (42-54) Mean Corpuscular Volume 91.7 fL (79-99) Mean Corpuscular Hemoglobin 30.8 pg (27.0-33.0) Mean Corpuscular Hemoglobin Concent 33.5 g/dL (32.0-36.0) Red Cell Distribution Width 16.0 % (11.0-15.5) H Platelet Count 178 K/uL (130-400) Mean Platelet Volume 9.8 fL (7.5-10.5) Immature Granulocyte % (Auto) 0.3 % (0-1) Neutrophils (%) (Auto) 55.8 % (40.0-77.0) Lymphocytes (%) (Auto) 30.0 % (21.0-51.0) Monocytes (%) (Auto) 8.3 % (3.0-13.0) Eosinophils (%) (Auto) 4.8 % (0.0-8.0) Basophils (%) (Auto) 0.8 % (0.0-5.0) Neutrophils # (Auto) 3.7 K/uL (1.8-7.7) Lymphocytes # (Auto) 2.0 K/uL (1.0-4.8) Monocytes # (Auto) 0.6 K/uL (0.1-1.0) Eosinophils # (Auto) 0.32 K/uL (0.00-0.70) Basophils # (Auto) 0.05 K/uL (0.00-0.20) Absolute Immature Granulocyte (auto 0.02 K/uL (0-1) Nucleated Red Blood Cells 0.0 % (0.0-0.19) Sodium Level 134 mmol/L (136-145) L Potassium Level 3.8 mmol/L (3.5-5.1) Chloride Level 100 mmol/L (101-111) L Carbon Dioxide Level 26 mmol/L (21-32) Blood Urea Nitrogen 31 mg/dL (7-18) H Creatinine 1.0 mg/dL (0.5-1.3) Glomerular Filtration Rate Calc 75 mL/min (>90) Random Glucose 89 mg/dL (70-105) Total Calcium 9.4 mg/dL (8.5-10.1) Urine Color YELLOW (YELLOW) Urine Appearance CLOUDY (CLEAR) H Urine pH 5.5 (5.0-8.0) Urine Specific [place] 1.027 (1.001-1.031) Urine Protein 20 mg/dL (NEGATIVE) H Urine Glucose (UA) NEGATIVE mg/dL (NEGATIVE) Urine Ketones NEGATIVE mg/dL (NEGATIVE) Urine Occult Blood MODERATE (NEGATIVE) H Urine Nitrate NEGATIVE (NEGATIVE) Urine Bilirubin NEGATIVE mg/dL (NEGATIVE) Urine Urobilinogen 0.2 mg/dL (0.2-1.0) Urine Leukocyte Esterase 250 Merrick/uL (NEGATIVE) H Urine RBC 51-100 /HPF (0-1) H Urine WBC 51-100 /HPF (0-1) H Urine Squamous Epithelial Cells MOD /HPF (0-2) Urine Non-Squamous Epithelial Cells 1 /HPF (0-2) Urine Bacteria RARE /HPF (None Seen) Labs Reviewed?: Yes EKG/XRAY/US/CT/MRI CT Scan Comment [facility] [address] [place] [address] IMAGING REPORT Signed PATIENT: DARIANA ARROYO MR#: [id number] : 1940 SEX: M AGE: 84 LOCATION: [facility] ORDER 1002 STATUS: [facility] REPORT#: [id number] SERVICE 1001 REASON: back pain/ rule out AAA ORDERING PHYSICIAN: MIKE AUSTIN MD PROCEDURE: ABD PEL WO - CT ABDOMEN/PELVIS W/O CONTRAST CT ABDOMEN/PELVIS W/O CONTRAST HISTORY: Back pain COMPARISON: None TECHNIQUE: Multiple sequential axial images of the abdomen and pelvis were obtained from the dome of the diaphragm through symphysis pubis. Patient was not given contrast through intravenous route. Oral contrast was not given. FINDINGS: No pleural effusion is seen bilaterally. There is no evidence of parenchymal disease or pulmonary nodule of the visualized lower lungs. Degenerative changes of the thoracolumbar spine are present. The heart is not enlarged. Liver measures 14 cm. Postcholecystectomy changes are seen. There is diverticulosis. There is mild small bowel dilatation with fluid-filled may be related to enterocolitis. The liver, spleen, adrenal glands and pancreas are unremarkable. There is no evidence of hydronephrosis bilaterally. No evidence of renal stone is seen. Fecal material is seen in the colon. There are normal size retroperitoneal and mesenteric lymph nodes. No ascites is seen. Atherosclerotic changes are present. No CT evidence of acute appendicitis is seen. Pelvic sidewalls are symmetric bilaterally. Bladder is poorly distended. IMPRESSION: 1. There is diverticulosis. There is mild small bowel dilatation with fluid-filled may be related to enterocolitis. CT was performed with one or more following dose reduction techniques: automated exposure control, adjustment of the mA and kv according to patient's size, or use of a iterative reconstruction technique. DICTATED BY: BRUNA LEYVA MD DATE: 04/01/25 1158 ELECTRONICALLY SIGNED BY: BRUNA LEYVA MD DATE: 04/01/25 1202 [facility] MDM: DIFFERENTIAL DIAGNOSIS: BACK PAIN, CHRONIC BACK PAIN, AAA, RATIONALE: TESTS CONSIDERED AND ORDERED SECONDARY TO SHARED DECISION MAKING INCLUDE: PREVIOUS OUTSIDE RECORDS REVIEWED: OLD ER VISITS. RISK OF COMPLICATION AND/OR MORBIDITY OR MORTALITY OF PATIENT MANAGEMENT: NONE PATIENT IS A AN 84-YEAR-OLD MALE COMING IN TO BE EVALUATED FOR BACK PAIN. [facility]ID ENT DID DISCLOSE THAT HE HAD FALLEN AND WAS DIAGNOSED WITH A COCCYX FRACTURE. IN PRESENTATION IN TRIAGE PATIENT'S COMPLAINT WAS MORE LUMBAR AREA HE DID HAS A HISTORY OF SMOKING SYMPTOMS WITH THE FACT IN HIS SMOKED AND HAD LOWER BACK PAIN A AAA IS A RULED OUT CT WAS PERFORMED. PATIENT DID HAVE A POSITIVE LEUKO ESTERASE URINE SUGGESTIVE OF UTI. PATIENT WILL BE DISCHARGED IN STABLE CONDITION AFTER HE WAS HYDRATED AND RECEIVED IV ANTIBIOTICS. ED Course Orders Procedure Category Date Status Time Cbc With Differential LAB 04/01/25 Complete 10:01 Basic Metabolic Panel LAB 04/01/25 Complete 10:01 Ct Abdomen/Pelvis W/O CT 04/01/25 Resulted Contrast 10:01 Urinalysis Profile LAB 04/01/25 Complete 11:08 Culture Urine SALOME 04/01/25 Logged 11:30 0.9%Nacl 1000ml (Ns PHA 04/01/25 Complete 1000ml) 12:00 Ceftriaxone 1g Vial PHA 04/01/25 Complete (Rocephine 1g Inj) 12:00 Current Medications Medications (Trade) Dose Ordered Sig/Chan Route PRN Reason Start Time Stop Time Status Last Admin Dose Admin Ceftriaxone Sodium (ROCEphine 1G INJ) 1 gm ONCE ONCE IVPB 04/01/25 12:00 04/01/25 12:01 DC Sodium Chloride 1,000 ml @ 0 mls/hr ONCE ONCE IV 04/01/25 12:00 04/01/25 12:01 DC Vital Signs Date Time Temp Pulse Resp B/P (MAP) Pulse Ox O2 Delivery O2 Flow Rate FiO2 04/01/25 09:57 97.7 70 16 134/72 97 Room Air DX & DISP Disposition: Discharge Departure Impression: Primary Impression: Acute cystitis with hematuria Additional Impression: Dehydration Condition: Stable Scripts Cephalexin Monohydrate (Keflex) 500 Mg Cap 1 CAP PO TID for 10 Days, #30 CAP 0 Refills Prov: MIKE AUSTIN MD 04/01/25 Additional Instructions: FOLLOW-UP WITH PRIMARY CARE PROVIDER IN 1 TO 2 DAYS. TAKE MEDICATIONS DIRECTED HERE IN THE EMERGENCY ROOM. OKAY TO CONTINUE HOME MEDICATIONS UNLESS OTHERWISE DISCUSSED DURING YOUR VISIT IN THE EMERGENCY ROOM TODAY. RETURN TO YOUR NEAREST EMERGENCY ROOM IF SYMPTOMS WORSEN OR IF THERE IS NO IMPROVEMENT. CALL 911 IF YOU NEED IMMEDIATE ASSISTANCE. TAKE TYLENOL [id number] NEEDED AND IF NO CONTRAINDICATIONS ARE PRESENT. INCREASE ORAL HYDRATION. A WOUND CULTURE OR URINE CULTURE WAS ORDERED HERE IN THE EMERGENCY ROOM DEPARTMENT PLEASE FOLLOW-UP WITH PRIMARY CARE PROVIDER AND ADVISE THEM TO GET REPEAT PORTS FROM OUR FACILITY. IF YOU HAD ANY JODI WRAP/SPLINTS THAT WERE APPLIED HERE, PLEASE DO NOT REMOVE THEM UNTIL YOU SEE YOUR PRIMARY CARE OR SPECIALTY. REFERRALS: Referrals: LUBNA HERNANDEZ MD (PCP) Time of Disposition: 12:10 MIKE AUSTIN MD April 01, 2025 10:28
[2025-04-01 11:06] LABS: POTASSIUM 3.8 mmol/L (3.5-5.1)
[2025-04-01 11:11] LABS: BASOPHILS # (AUTO) 0.05 K/uL (0.00-0.20); BASOPHILS % (AUTO) 0.8 % (0.0-5.0); EOSINOPHILS # (AUTO) 0.32 K/uL (0.00-0.70); EOSINOPHILS % (AUTO) 4.8 % (0.0-8.0); HEMATOCRIT 48.6 % (42-54); IMMATURE GRANULOCYTE ABSOLUTE 0.02 K/uL (0-1); MEAN CORPUSCULAR HEMOGLOBIN 30.8 pg (27.0-33.0); MEAN CORPUSCULAR HGB CONC 33.5 g/dL (32.0-36.0); MEAN CORPUSCULAR VOLUME 91.7 fL (79-99); MONOCYTES # (AUTO) 0.6 K/uL (0.1-1.0); MONOCYTES % (AUTO) 8.3 % (3.0-13.0); NEUTROPHILS # (AUTO) 3.7 K/uL (1.8-7.7); NEUTROPHILS % (AUTO) 55.8 % (40.0-77.0); PLATELET COUNT (AUTO) 178 K/uL (130-400); WHITE BLOOD COUNT (AUTO) 6.6 K/uL (4.8-10.8)
[2025-04-01 11:22] LABS: APPEARANCE,URINE CLOUDY (CLEAR); BILIRUBIN,URINE NEGATIVE (NEGATIVE); COLOR,URINE YELLOW (YELLOW); GLUCOSE, URINE (UA) NEGATIVE (NEGATIVE); KETONES,URINE NEGATIVE (NEGATIVE); LEUKOCYTE ESTERASE ,URINE 250 Leu/uL (NEGATIVE); NITRATE,URINE NEGATIVE (NEGATIVE); OCCULT BLOOD,URINE MODERATE (NEGATIVE); PH,URINE 5.5 (5.0-8.0); PROTEIN,URINE 20 mg/dL (NEGATIVE); UROBILINOGEN,URINE 0.2 mg/dL (0.2-1.0)
[2025-04-01 11:23] LABS: ADD UA MICROSCOPIC YES
[2025-04-01 11:32] LABS: BACTERIA,URINE RARE /HPF (None Seen); MUCUS,URINE RARE LPF (None Seen); NON-SQUAMOUS EPITHELIAL CELL 1 /HPF (0-2); RBC,URINE 51-100 /HPF (0-1); SQUAMOUS EPITHELIAL CELL,UR MOD /HPF (0-2); WBC,URINE 51-100 /HPF (0-1)
--- NOTE | 2025-04-01 12:02 | HMCIMG ---
CT ABDOMEN/PELVIS W/O CONTRAST HISTORY: Back pain COMPARISON: None TECHNIQUE: Multiple sequential axial images of the abdomen and pelvis were obtained from the dome of the diaphragm through symphysis pubis. Patient was not given contrast through intravenous route. Oral contrast was not given. FINDINGS: No pleural effusion is seen bilaterally. There is no evidence of parenchymal disease or pulmonary nodule of the visualized lower lungs. Degenerative changes of the thoracolumbar spine are present. The heart is not enlarged. Liver measures 14 cm. Postcholecystectomy changes are seen. There is diverticulosis. There is mild small bowel dilatation with fluid-filled may be related to enterocolitis. The liver, spleen, adrenal glands and pancreas are unremarkable. There is no evidence of hydronephrosis bilaterally. No evidence of renal stone is seen. Fecal material is seen in the colon. There are normal size retroperitoneal and mesenteric lymph nodes. No ascites is seen. Atherosclerotic changes are present. No CT evidence of acute appendicitis is seen. Pelvic sidewalls are symmetric bilaterally. Bladder is poorly distended. IMPRESSION: 1. There is diverticulosis. There is mild small bowel dilatation with fluid-filled may be related to enterocolitis. CT was performed with one or more following dose reduction techniques: automated exposure control, adjustment of the mA and kv according to patient's size, or use of a iterative reconstruction technique.
[2025-04-01] MEDS ORDERED: CEPH500B PO (12:11)
[2025-04-01] MEDS: 0.9%NACL 1000ML 1,000 ML IV ONE (12:18)
[2025-04-01] MEDS: cefTRIAXone 1G VIAL IVPB ONE (12:18)
[2025-04-01 13:24] VITALS: BP 119/84; PULSE 76; RESP 20; TEMP 97.8; O2SAT 98
== END 2025-04-01 13:29 | disposition home or self-care (01) ==
LOC: EDH 09:55
DX: N30.01 Acute cystitis with hematuria (principal); E86.0 Dehydration; M54.50 Low back pain, unspecified; F03.90 Unspecified dementia, unspecified severity, without behavioral disturbance, psychotic disturbance, mood disturbance, and anxiety; F17.200 Nicotine dependence, unspecified, uncomplicated; I10 Essential (primary) hypertension; Z79.01 Long term (current) use of anticoagulants; Z79.82 Long term (current) use of aspirin; Z79.84 Long term (current) use of oral hypoglycemic drugs; Z79.899 Other long term (current) drug therapy; W18.39XA Other fall on same level, initial encounter; Y93.89 Activity, other specified; Y92.89 Other specified places as the place of occurrence of the external cause; Y99.8 Other external cause status
CPT/HCPCS: 99284; 74176; 96374; 80048; 85025; 81001; 36415; J7030; J0696

== ENCOUNTER 2025-07-27 19:09 | Emergency (ER) | payer OTHER ==
[~2025-07-27] VITALS: Ht 170.2 cm; Wt 73.9 kg
[~2025-07-27 19:09] MED LIST changes: +CEPH500B PO; -PRAV40TA3 PO; +PRAV40TA62 PO; -PRAV80TA21 PO; +PRAV80TA75 PO
--- NOTE | 2025-07-27 19:29 | NUR ---
PT CARE ASSUMED AT THIS TIME
[2025-07-27 19:49] LABS: APPEARANCE,URINE CLEAR (CLEAR); GLUCOSE, URINE (UA) NEGATIVE (NEGATIVE); LEUKOCYTE ESTERASE ,URINE NEGATIVE Leu/uL (NEGATIVE); NITRATE,URINE NEGATIVE (NEGATIVE); OCCULT BLOOD,URINE SMALL (NEGATIVE)
[2025-07-27 19:50] LABS: ADD UA MICROSCOPIC YES
[2025-07-27 19:54] LABS: SARS-CoV-2, RNA, NAAT NEGATIVE SARS CoV-2 (NEGATIVE)
[2025-07-27 19:59] LABS: SQUAMOUS EPITHELIAL CELL,UR RARE /HPF (0-2)
[2025-07-27 19:59] LABS: INFLUENZA TYPE A Negative For Type A (NEGATIVE); INFLUENZA TYPE B Negative For Type B (NEGATIVE)
[2025-07-27 20:11] LABS: IMMATURE GRANULOCYTE ABSOLUTE 0.02 K/uL (0-1); NUCLEATED RED BLOOD CELLS 0.0 % (0.0-0.19); PLATELET COUNT (AUTO) 166 K/uL (130-400); RED BLOOD CELL COUNT(AUTO) 4.86 MIL/uL (4.50-6.20); RED CELL DISTRIBUTION WIDTH 13.8 % (11.0-15.5); WHITE BLOOD COUNT (AUTO) 7.6 K/uL (4.8-10.8)
[2025-07-27 20:20] LABS: CREATININE 0.8 mg/dL (0.5-1.3); GLOMERULAR FILTR. RATE CALC 88.0 mL/min (>90); GLUCOSE,RANDOM 88.0 mg/dL (70-105); SODIUM SERUM 127.0 mmol/L (136-145); UREA NITROGEN, BLOOD 44.0 mg/dL (7-18)
[2025-07-27 20:23] LABS: INR 1.29 (0.85-1.15)
[2025-07-27 20:25] LABS: CREATINE KINASE, TOTAL 34.0 U/L (21-232)
--- NOTE | 2025-07-27 20:46 | HMCIMG ---
EXAM: CR Chest, 1 View. CLINICAL HISTORY: sob COMPARISON: None provided. FINDINGS: LUNGS: The lungs show no infiltrate or other acute finding. Slight left basilar atelectasis/parenchymal scarring PLEURAL SPACES: No pleural effusion or pneumothorax. MEDIASTINUM: Cardiac size and mediastinal contours within normal limits. Pacer evident. Status post median sternotomy BONES: No aggressive appearing osseous lesion seen. IMPRESSION: No acute cardiopulmonary pathology is evident. /[place]
[2025-07-27] MEDS: 0.9% NACL 500ML IV.SOLN 500 ML IV SCH (21:44)
--- NOTE | 2025-07-27 21:50 | ERN ---
General Chief Complaint: Shortness of Breath Stated Complaint: C/O SOB ONSET 2 HRS AGO. Time Seen by MD: 19:12 Time Seen by Midlevel: 19:12 Source: patient History of Present Illness Initial Comments The patient is an 84-year-old male with a past medical history of type 2 diabetes, and hypertension presenting to the emergency department for evaluation of shortness of breaths started a proximally2 hours prior to arrival. Denies any other symptoms. He specifically denies chest pain, cough, fever, chills. On arrival with the patient states he reports feeling better. Allergies: Coded Allergies: No Allergy Information Available (Verified Allergy, Unknown, 03/18/23) No Known Drug Allergies (Unverified Allergy, Unknown, 03/18/23) Home Meds Active Scripts Cephalexin Monohydrate (Keflex) 500 Mg Cap, 1 CAP PO TID for 10 Days, #30 CAP 0 Refills Prov:MIKE AUSTIN MD 04/01/25 Phenazopyridine HCl (Pyridium) 200 Mg Tablet, 200 MG PO TID for painful urination, #10 TAB 0 Refills Prov:JELANI ZEPEDA NP 10/27/24 Amoxicillin/Potassium Clav (Amox Tr-K Clv 875-125 mg Tab) 875 Mg-125 Mg Tablet, 1 EACH PO BID for 7 Days, #14 TAB 0 Refills Prov:JELANI ZEPEDA NP 10/27/24 Reported Medications Metformin HCl (Metformin HCl) 500 Mg Tablet, 500 MG PO DAILY, TAB 01/26/21 Losartan Potassium (Losartan Potassium) 100 Mg Tablet, 100 MG PO DAILY, TAB 01/26/21 Finasteride (Finasteride) 5 Mg Tablet, 5 MG PO DAILY, TAB 01/26/21 Metoprolol Tartrate (Metoprolol Tartrate) 25 Mg Tablet, 25 MG PO BID, TAB 01/26/21 Tamsulosin HCl (Flomax) 0.4 Mg Cap.er.24h, 0.4 MG PO AM, CAPSULE.DR 01/26/21 Pravastatin Sodium (Pravastatin Sodium) 80 Mg Tablet, 80 MG PO HS, TAB 01/26/21 Warfarin Sodium (Warfarin Sodium) 4 Mg Tablet, 4 MG PO DAILY, TAB 01/26/21 Quetiapine Fumarate (Quetiapine Fumarate) 50 Mg Tablet, 50 MG PO HS 01/24/21 Metformin HCl (Metformin HCl ER) 500 Mg [id number], 500 MG PO DAILY 02/25/19 Metoprolol Tartrate (Metoprolol Tartrate) 25 Mg Tablet, 25 MG PO BID, TAB 11/12/18 Aspirin (Aspir 81) 81 Mg Tablet.dr, 81 MG PO DAILY, TAB 11/12/18 Fenofibrate (Fenofibrate) 54 Mg Tablet, 54 MG PO DAILYBKFST, TAB 11/12/18 Losartan Potassium (Losartan Potassium) 100 Mg Tablet, 100 MG PO DAILYBKFST, TAB 11/12/18 Tamsulosin HCl (Tamsulosin HCl) 0.4 Mg Cap.er.24h, 0.4 MG PO DAILYBKFST, CAPSULE.DR 11/12/18 Finasteride (Finasteride) 5 Mg Tablet, 5 MG PO DAILY, TAB 11/12/18 Pravastatin Sodium (Pravastatin Sodium) 40 Mg Tablet, 40 MG PO DAILYDINNER, TAB 11/12/18 Past Medical History Past Medical History: Diabetes-Type II, Heart Disease, Hypertension Medical History Other: OPEN HEART (2004) Past Surgical History: Pacer/AICD, Other Surgical History Other: OPEN HEART (2004) ROS Dictation CONSTITUTIONAL: Negative except for HPI HEAD/FACE: Negative except for HPI EENT: Negative except for HPI RESPIRATORY: Negative except for HPI GASTROINTESTINAL/ABDOMINAL: Negative except for HPI GENITOURINARY: Negative except for HPI MUSCULOSKELETAL: Negative except for HPI INTEGUMENTARY: Negative except for HPI NEUROLOGICAL/PSYCH: Negative except for HPI HEMATOLOGIC/LYMPHATIC: Negative except for HPI All Systems Negative, Except as noted above. 13 point review of systems assessed and all negative except for above. Physical Exam Physical Exam Dictation Vital Signs reviewed General Appearance: Alert, oriented x 3, no acute distress, well developed, n ourished. Head and Face: non-traumatic. Eyes: PERRL, pink conjunctivas, eyelid no trauma, anterior chamber with arcus senilis. Ears: Pinnas intact and no signs of trauma or erythema ear canals clear and no discharge TM no erythema Nose: No discharge, no bleeding. Oropharynx: Mouth normal, tongue pink, pharynx clear,no erythema, tonsils no exudates, no abscesses noted, mucous membrane moist Neck: Supple, non-tender, no thyromegaly, no masses, no JVD, no bruits Breast:Deferred Chest:No tenderness, no crepitus, no paradoxical movement, no retractions Lungs:Clear, well-ventilated, symmetric, no rales, no wheezing, no rhonchi, no stridor, good breath sounds bilaterally Heart: Regular rate, regular rhythm, no murmur, no gallops Vascular: no peripheral edema, Abdomen: Soft, positive bowel sounds, nondistended, no guarding, nontender, no rebound, no masses no hepatomegaly, no splenomegaly, no De Leon's sign, no hernias. Rectal: Deferred Genital: Deferred Neurological: Normal speech, motor function intact, sensory function intact Musculoskeletal: Neck nontender, full range of motion, back nontender, full range of motion, Extremities: nontender, full range of motion Skin: Color pink, dry, no turgor, no rash, no lacerations, no abrasions, no contusions. Lymphatic: Deferred Results Laboratory and Microbiology Lab and Micro Result Laboratory Tests Test 07/27/25 19:05 07/27/25 19:10 07/27/25 20:03 Influenza Type A Antigen Negative For Type A Influenza Type B Antigen Negative For Type B SARS-CoV-2, RNA, NAAT NEGATIVE SARS CoV-2 Urine Color LIGHT-YELLOW (YELLOW) Urine Appearance CLEAR (CLEAR) Urine pH 5.5 (5.0-8.0) Urine Specific [place] 1.012 (1.001-1.031) Urine Protein NEGATIVE mg/dL (NEGATIVE) Urine Glucose (UA) NEGATIVE mg/dL (NEGATIVE) Urine Ketones NEGATIVE mg/dL (NEGATIVE) Urine Occult Blood SMALL (NEGATIVE) H Urine Nitrate NEGATIVE (NEGATIVE) Urine Bilirubin NEGATIVE mg/dL (NEGATIVE) Urine Urobilinogen 0.2 mg/dL (0.2-1.0) Urine Leukocyte Esterase NEGATIVE [place]/uL Urine RBC 2-5 /HPF (0-1) H Urine WBC 2-5 /HPF (0-1) H Urine Squamous Epithelial Cells RARE /HPF (0-2) Urine Bacteria None /HPF (None Seen) White Blood Count 7.6 K/uL (4.8-10.8) Red Blood Count 4.86 MIL/uL (4.50-6.20) Hemoglobin 14.7 g/dL (14.0-18.0) Hematocrit 41.9 % (42-54) L Mean Corpuscular Volume 86.2 fL (79-99) Mean Corpuscular Hemoglobin 30.2 pg (27.0-33.0) Mean Corpuscular Hemoglobin Concent 35.1 g/dL (32.0-36.0) Red Cell Distribution Width 13.8 % (11.0-15.5) Platelet Count 166 K/uL (130-400) Mean Platelet Volume 9.2 fL (7.5-10.5) Immature Granulocyte % (Auto) 0.3 % (0-1) Neutrophils (%) (Auto) 67.8 % (40.0-77.0) Lymphocytes (%) (Auto) 19.6 % (21.0-51.0) L Monocytes (%) (Auto) 9.7 % (3.0-13.0) Eosinophils (%) (Auto) 2.2 % (0.0-8.0) Basophils (%) (Auto) 0.4 % (0.0-5.0) Neutrophils # (Auto) 5.2 K/uL (1.8-7.7) Lymphocytes # (Auto) 1.5 K/uL (1.0-4.8) Monocytes # (Auto) 0.7 K/uL (0.1-1.0) Eosinophils # (Auto) 0.17 K/uL (0.00-0.70) Basophils # (Auto) 0.03 K/uL (0.00-0.20) Absolute Immature Granulocyte (auto 0.02 K/uL (0-1) Nucleated Red Blood Cells 0.0 % (0.0-0.19) Prothrombin Time 13.3 SEC (9.6-11.6) H Prothromb Time International Ratio 1.29 (0.85-1.15) H Activated Partial Thromboplast Time 29.1 SEC (26.3-35.5) Sodium Level 127 mmol/L (136-145) L Potassium Level 4.6 mmol/L (3.5-5.1) Chloride Level 96 mmol/L (101-111) L Carbon Dioxide Level 25 mmol/L (21-32) Blood Urea Nitrogen 44 mg/dL (7-18) H Creatinine 0.8 mg/dL (0.5-1.3) Glomerular Filtration Rate Calc 88 mL/min (>90) Random Glucose 88 mg/dL (70-105) Lactic Acid Level 1.2 mmol/L (0.8-2.5) Total Calcium 8.6 mg/dL (8.5-10.1) Magnesium Level 1.90 mg/dL (1.80-2.40) Total Creatine Kinase 34 U/L (21-232) # Troponin I High Sensitivity 57 ng/L (4-75) B-Type Natriuretic Peptide 163 pg/mL (0-100) H Labs Reviewed?: Yes MDM MDM: Differential diagnosis: Dehydration, pneumonia, pulmonary edema, pleural effusion, electrolyte abnormality There are no social concerns with this patient. Prescription drug management Prescriptions will include: None Medical management and examination interpretation discussions were had by me with other qualified healthcare professionals as indicated for the patient's care. ED Course Orders Procedure Category Date Status Time 12 Lead Ekg Tracing- EKG 07/27/25 Logged Technical 19:16 B-Type Natriuretic LAB 07/27/25 Complete Peptide 19:16 Basic Metabolic Panel LAB 07/27/25 Complete 19:16 Cbc With Differential LAB 07/27/25 Complete 19:16 Covid Rna Naat LAB 07/27/25 Complete 19:16 Influenza Type A & B, LAB 07/27/25 Complete Rapid 19:16 Creatine Kinase, Total LAB 07/27/25 Complete 19:16 Magnesium LAB 07/27/25 Complete 19:16 Lactic Acid LAB 07/27/25 Complete 19:16 Troponin I High LAB 07/27/25 Complete Sensitivity 19:16 Pt And Ptt LAB 07/27/25 Complete 19:16 Urinalysis Profile LAB 07/27/25 Complete 19:16 Chest 1vw RAD 07/27/25 Resulted 19:16 0.9% Nacl 500ml PHA 07/27/25 In Process Iv.Soln (Ns 500ml 21:30 Current Medications Medications (Trade) Dose Ordered Sig/Chan Route PRN Reason Start Time Stop Time Status Last Admin Dose Admin Sodium Chloride 500 ml @ 0 mls/hr Q0M IV 07/27/25 21:30 08/26/25 21:29 Vital Signs Date Time Temp Pulse Resp B/P (MAP) Pulse Ox O2 Delivery O2 Flow Rate FiO2 07/27/25 19:30 98.8 70 15 135/56 98 Room Air* 0 21 07/27/25 19:13 98.1 75 20 138/57 96 Room Air DX & DISP Disposition: Discharge Departure Impression: Primary Impression: Mild dehydration Condition: Stable Additional Instructions: Your blood work today shows signs of mild dehydration. Your chest x-ray shows no evidence of infection or any other acute abnormality. You were given IV fluids in the emergency department. Please follow up with the primary care doctor in 2-3 days for repeat evaluation. Return to the ER for any new or worsening symptoms Referrals: LUBNA HERNANDEZ MD (PCP) Time of Disposition: 21:49 I have reviewed the case, and I agree with, Diagnosis and Plan I performed the substantive portion of the visit. I have reviewed and personally made and approve the management plan that is documented in the note by myself or the UNNO. I acknowledge for responsibility for the patient's management plan. CHANDAN LEES Jul 27, 2025 21:50
[2025-07-27 22:14] VITALS: BP 157/70; PULSE 70; RESP 16; TEMP 98.5; O2SAT 99
--- NOTE | 2025-07-28 06:30 | EKG ---
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
== END 2025-07-27 22:15 | disposition home or self-care (01) ==
LOC: EDH 19:09
DX: E86.0 Dehydration (principal); E11.9 Type 2 diabetes mellitus without complications; I10 Essential (primary) hypertension; Z79.01 Long term (current) use of anticoagulants; Z79.82 Long term (current) use of aspirin; Z79.84 Long term (current) use of oral hypoglycemic drugs; Z79.899 Other long term (current) drug therapy; Z95.810 Presence of automatic (implantable) cardiac defibrillator; Z20.822 Contact with and (suspected) exposure to COVID-19
CPT/HCPCS: 99283; 71045; 87635; 82550; 83735; 84484; 80048; 83880; 85025; 85610; 85730; 87804 ×2; 83605; 81001; 36415; 93005; J7040